=== PATIENT | male | born 1955 | race Caucasian/White ===

== ENCOUNTER 2016-12-19 11:14 | Observation (INO) ==
[2016-12-19] MEDS ORDERED: NITROGLYCERIN 2% OINT 1 INCH/GM PACK TOP STA (11:43)
[2016-12-19] MEDS ORDERED: MORPHINE 2 MG/1 ML SYRINGE IV STA (11:43)
[2016-12-19] MEDS ORDERED: ONDANSETRON 4 MG/2 ML VIAL IV STA (11:43)
[2016-12-19] MEDS ORDERED: ASPIRIN 325 MG TABLET PO STA (11:43)
[2016-12-19] MEDS ORDERED: ALUM/MAG/SIMETH/LIDO VISC 1:1 30 ML BOTTLE PO STA (11:43)
--- NOTE | 2016-12-19 11:53 | Emergency Department Note ---
Xavier Pool Meredith, am scribing for, and in the presence of, Obi Pires MD 11:31. Pranay Pool Charles R, MD, personally performed the services described in this documentation, ascribed by Essence aPrk in my presence, and it is both accurate and complete 153 . Arrival - Arrival Chief Complaint: Chest Pain Stated Complaint: chest pain ED Nursing Triage Note: Transfer from [facility] ER for further evaluation of chest pain onset this am. c/o right sided chest pain--descirbes as pressure. +nausea. Denies shortness of breath. Mode of Arrival: Stretcher Limitations: No Limitations Source: Patient, Old Records Reviewed, RN Notes Reviewed - History of Present Illness HPI Narrative: Pt is a 61 y/o white male transferred to the ED by EMS from [facility] for further evaluation of episode of diaphoresis and weakness, onset this morning. He confirms some right sided chest tightness but denies any shortness of breath. Pt states he has also noticed a "full/pressure" feeling in the left epigastric area which is worse with exertion. His last heart cath was in 2014 which was normal. Pt has a history of HTN and hiatal hernia. He has a family history of heart disease. Onset (ago): hour(s) Quality: other (tightness) Allergies/Adverse Reactions: Allergies Allergy/AdvReac Type Severity Reaction Status Date / Time Erythromycin Base AdvReac Unknown/Unable Verified 12/19/16 11:21 to obtain Penicillins AdvReac Seizure Verified 12/19/16 11:21 Review of System - Review of System 12 point system: reviewed and no additional remarkable complaints except as stated - Review of System Constitutional: Present: as per HPI, diaphoresis Respiratory: Present: as per HPI, other (denies SOB) Cardiovascular: Present: as per HPI, chest pain (right-sided chest tightness and left epigastric pressure) Medical,Surgical,& Family Hx - Medical History Cardio: History of: Hypertension Gastrointestinal: History of: GI Problems (hiatal hernia) - Surgical History Cardiac Surgeries: Sugical HX of: Cardiac Catheterization Abdominal Surgeries: Surgical HX of: Cholecystectomy - Family History Family History: Reports;: Family Heart Disease - Social History Smoking Status: Never smoker Frequency of Alcohol Use: Rarely Type of Drug Use: None Exam Vital Signs: Vital Signs Temperature 98.6 F 12/19/16 11:14 Pulse Rate 76 12/19/16 11:14 Respiratory Rate 18 12/19/16 11:14 Blood Pressure 141/87 12/19/16 11:14 O2 Sat by Pulse Oximetry 100 12/19/16 11:14 - General General appearance: alert, in no apparent distress, obese - Head Head exam: Present: atraumatic, normocephalic - Eye Eye exam: Present: normal appearance, PERRL, EOMI - ENT ENT exam: Present: mucous membranes moist, normal external ear exam - Neck Neck exam: Present: full ROM. Absent: trachea midline, tenderness, meningismus , lymphadenopathy, thyromegaly - Chest Chest inspection: Present: symmetric chest wall rise. Absent: tenderness, rash - Respiratory Respiratory exam: Present: normal lung sounds bilaterally. Absent: respiratory distress - Cardiovascular Cardiovascular exam: Present: regular rate, normal rhythm, normal heart sounds. Absent: murmur, rubs, gallop - Abdominal Exam Abdominal exam: Present: soft, normal bowel sounds. Absent: distention, tenderness - Extremities Exam Extremities exam: Present: full ROM, normal capillary refill. Absent: tenderness, pedal edema, calf tenderness - Back Exam Back exam: Present: full ROM. Absent: tenderness - Neurological Exam Neurological exam: Present: alert, oriented X3, CN II-XII intact. Absent: motor sensory deficit - Psychiatric Psychiatric exam: Present: normal affect, normal mood - Skin Skin exam: Present: warm, dry, intact, normal color Course - Consultations Consultation #1: Dr. Vinay Ken will admit patient Time: 11:52 Results - Labs Lab Results: I have reviewed the patients labs Labs: All results reviewed from previous facility Disposition Clinical Impression: Chest pain Case discussed with: patient, patient's family Disposition: Still a Patient Condition: Stable Time of Disposition: 11:53
--- NOTE | 2016-12-19 11:58 | EKG Report ---
Stationary ECG Study [facility] Test Date: 12/19/2016 11:19:05 AM Pat Name: XAVIER MEEK Department: Room: 267 Gender: M Telecom Assistant: : 1955 Requested by: Obi Wood Order Number: [id number] Reading MD: VEE ABRAMS Intervals [place] Rate: 74 P: 28 [place]: 173 QRS: -10 QRSD: 110 T: -7 QT: 370 QTc: 397 Interpretive Statements SINUS RHYTHM LOW QRS VOLTAGE IN PRECORDIAL LEADS POSSIBLE LEFT VENTRICULAR HYPERTROPHY NONSPECIFIC T-WAVE ABNORMALITY Electronically Signed On 12-20-16 13:34:32 GRAIN ELEVATOR MOTOR STARTER by VEE ABRAMS [email or web address]
[2016-12-19 11:59] LABS: Basophils # 0.1 10*3/uL (0.0-0.2); Basophils % 0.4 % (0.0-0.8); Eosinophils # 0.1 10*3/uL (0.0-0.87); Eosinophils % 0.4 % (0.00-10.9); Hematocrit 51.3 VOL% (42.0-52.0); Hemoglobin 17.7 GM/DL (14.0-18.0); Immature Granulocytes % 0.4 %; Immature Granulocytes Absolute 0.05 #; Lymphocytes # 1.7 10*3/uL (1.4-4.0); Lymphocytes % 12.1 % (21.2-54.2); Mean Corpuscular HGB Conc 34.5 GM/DL (32-36); Mean Corpuscular Hemoglobin 31 PG (27-34); Mean Corpuscular Volume 89.1 FL (87-102); Mean Platelet Volume 11.4 FL (9.6-12.0); Monocytes # 1.4 10*3/uL (0.11-0.8); Neutrophils # 10.5 10*3/uL (1.4-7.4); Neutrophils % 76.7 % (38.7-73.9); Platelet Count 225 10*3/uL (130-400); Red Blood Count 5.76 10*6/uL (3.8-5.5); Red Cell Distribution Width 12.8 % (9.3-17.3); White Blood Count 13.6 10*3/uL (4.5-13.71)
[2016-12-19] MEDS ORDERED: NITROGLYCERIN 2% OINT 1 INCH/GM PACK TOP ONE (12:02)
[2016-12-19] MEDS ORDERED: ONDANSETRON 4 MG/2 ML VIAL ONE (12:02)
[2016-12-19] MEDS ORDERED: MORPHINE 2 MG/1 ML SYRINGE ONE (12:02)
[2016-12-19] MEDS ORDERED: ALUM/MAG/SIMETH/LIDO VISC 1:1 30 ML BOTTLE PO ONE (12:02)
--- NOTE | 2016-12-19 12:04 | XRay Report ---
XR chest 1V portable Indication: Chest pain. Chest one view: Comparison 03/25/14. Heart size and mediastinal contour are normal. There is diffuse mild parabronchial thickening present. No focal infiltrates are shown. Pleural spaces are clear. Bones are intact. Impression: Mild airways disease such as bronchitis or viral syndrome. No focal pneumonia. PROCEDURE INTERPRETED AT [facility] DEPARTMENT OF RADIOLOGY Final Report Signed by: Mann Leiva M.D.
[2016-12-19 12:20] LABS: Albumin 4.2 G/DL (3.4-5.0); Bilirubin,Total 1.3 MG/DL (0.2-1.0); Calcium 9.4 MG/DL (8.5-10.1); Magnesium 2.3 MG/DL (1.8-2.4); Osmolality,Calculated 286.8 MOS/KG (273-304); Potassium 4.1 MMOL/L (3.5-5.1); Total Protein 7.2 G/DL (6.4-8.3)
--- NOTE | 2016-12-19 13:15 | Family Practice History&Phys ---
Assessment and Plan (1) Atypical chest pain Status: Acute Assessment and plan: 12/19/2016: Patient admitted to my services. Will consult cardiology. I do not think this represents cardiac pain but he certainly could be having an arrhythmia and will ask cardiology if they thinks he needs a link monitor. Current Visit: Yes History of Present Illness Chief complaint: Abdominal pain History of present illness: Mr. Reaves is a 61 year old male Patient 61-year-old white male states he got up this morning and has some fullness in his left upper abdomen and left lower chest that he describes is feeling like a balloon is in the area. He tell me he broke out in a sweat this morning but had no nausea, vomiting or discomfort in his neck shoulders or arms. Patient went to the ambulance base in [place] and they did a EKG on him and told him it was abnormal. He was taken to the emergency room in [place] and then transferred here for further evaluation. Patient does have a history of fairly recent left heart catheterization and thallium treadmill study as well. Both these were normal. He does have a family history of heart disease in his father which certainly provokes his anxiety which is considerable. He states he feels like he is back to normal now. Cardiac isoenzymes in the emergency room were normal. Emergency room physician did not feel comfortable sending him home and requested he be admitted for further evaluation. Home Medications Medication Instructions Recorded Confirmed Type Ascorbic Acid [Vitamin C] 1,000 mg PO BID 12/19/16 12/19/16 History Famotidine Tab [Pepcid Tab] 20 mg PO BID 12/19/16 12/19/16 History Metoprolol Succinate Xl [Toprol Xl] 25 mg PO DAILY 12/19/16 12/19/16 History Valsartan/Hctz 160-12.5 [Diovan 1 tablet PO DAILY 12/19/16 12/19/16 History Hct 160-12.5] Allergies Allergy/AdvReac Type Severity Reaction Status Date / Time Erythromycin Base AdvReac Unknown/Unable Verified 12/19/16 11:21 to obtain Penicillins AdvReac Seizure Verified 12/19/16 11:21 - Constitutional Constitutional: Present: weakness. Absent: chills, fatigue - EENT Eyes: Absent: blurry vision, loss of vision Ears: Absent: decreased hearing, ear pain Nose, mouth and throat: Absent: hoarseness, nasal congestion, sinus pressure, sore throat - Cardiovascular Cardiovascular: Present: chest pain at rest. Absent: claudication, dyspnea, dyspnea on exertion, orthopnea, palpitations, PND - Respiratory Respiratory: Absent: cough, dyspnea, wheezing - Gastrointestinal Gastrointestinal: Absent: abdominal pain, diarrhea, hematemesis, hematochezia, nausea, vomiting - Genitourinary Genitourinary: Absent: difficulty urinating, urinary frequency, urinary incontinence - Musculoskeletal Musculoskeletal: Absent: back pain - Neurological Neurological: Absent: confusion, convulsions, focal weakness, numbness, paresthesias - Psychiatric Psychiatric: Absent: confusion, depression - Endocrine Endocrine: Absent: fatigue, polydipsia, polyphagia - Hematologic/Lymphatic Hematologic/Lymphatic: Absent: easy bleeding, easy bruising Medical,Surgical,& Family Hx - Medical History Cardio: History of: Hypertension Gastrointestinal: History of: GI Problems (hiatal hernia) - Surgical History Cardiac Surgeries: Sugical HX of: Cardiac Catheterization Abdominal Surgeries: Surgical HX of: Cholecystectomy - Family History Family History: Reports;: Family Heart Disease - Social History Smoking Status: Never smoker Frequency of Alcohol Use: Rarely Type of Drug Use: None Exam - Constitutional Vitals: Period Temp Pulse Resp BP Sys/Gonzalez Pulse Ox Last 24 Hr 64-71 18-18 107-108/60-64 98-99 Exam: General: Objective patient is a well-developed white male in no acute distress. HEENT: Pupils equal and reactive to light. Patent nares and airway Neck: No meningismus, adenopathy, thyromegaly. There are no auscultated carotid bruits. Cardiovascular: Regular rhythm. No murmurs or gallops Chest: Clear to auscultation without rales rhonchi wheezes. Abdomen: Soft nontender to palpation No masses, rebound, guarding or tenderness. Neuro: Cranial nerves intact and DTRs and strength symmetric in all extremities. Dermatologic: No evidence of abnormal lesions or masses. Musculoskeletal: There is no joint swelling or tenderness or deformity. Extremities: There is no calf swelling or tenderness. Results - Labs CBC & BMP: 12/19/16 11:30 12/19/16 11:30 Lab Results: I have reviewed the past 24 hour labs
[2016-12-19] MEDS ORDERED: ACETAMINOPHEN 325 MG TABLET PO PRN (13:26)
[2016-12-19] MEDS ORDERED: MORPHINE 2 MG/1 ML SYRINGE IV PRN (13:26)
[2016-12-19] MEDS ORDERED: ONDANSETRON 4 MG/2 ML VIAL IV PRN (13:26)
[2016-12-19] MEDS: SODIUM CHLORIDE 0.9% 1,000 ML IV SCH (13:45)
[2016-12-19] MEDS: NITROGLYCERIN 2% OINT 1 INCH/GM PACK TOP SCH ×2 (13:59→17:48)
--- NOTE | 2016-12-19 15:05 | EKG Report ---
Stationary ECG Study [facility] Test Date: 12/19/2016 3:03:57 PM Pat Name: XAVIER MEEK Department: Room: 267 Gender: M Dish Room Worker: : 1955 Requested by: Obi Wood Order Number: [id number] Reading MD: VEE ABRAMS Intervals [place] Rate: 57 P: 49 ID: [id number] QRS: 12 QRSD: 99 T: -5 QT: 406 QTc: 400 Interpretive Statements SINUS RHYTHM POSSIBLE LEFT VENTRICULAR HYPERTROPHY Electronically Signed On 12-20-16 13:41:39 REFINERY OPERATOR POLYMERIZATION PLANT by VEE ABRAMS [id number]
[2016-12-19] MEDS: ENOXAPARIN 120 MG/0.8 ML SYRINGE SUBCUT SCH (16:31)
[2016-12-19] MEDS: DOCUSATE SODIUM 100 MG CAPSULE PO SCH (21:46)
--- NOTE | 2016-12-19 22:51 | Cardiology Consult Note ---
I, Keira Fontaine, AMBREEN, am scribing for, and in the presence of, Barney Dumont MD 22:50. Assessment and Plan - Time spent with patient Time spent with patient: Greater than 30 minutes (1) Atypical chest pain Status: Acute Assessment and plan: He reports recent negative cardiac workup including negative heart cath within 1.5 years and negative stress testing in January 2016. We will try to obtain these records. Last echocardiogram 10/03/15 revealed ejection fraction of 55%. Differential diagnosis of his left upper quadrant pain with activity would include splenic problem, bowel problem, colon problems, stomach problems, or some other abnormality in that area. I believe there is a low chance this is due to coronary disease, especially given his negative heart catheterization of 1.5 years ago and negative treadmill about 8 months ago. To me, it sounds like splenic flexure syndrome which would be gas pain in the splenic flexure colon area. I suppose it could be due to an arrhythmia, but he is not feeling associated rapid heart rate or irregular heart rate with it. At this point, I believe the insurance would not approve/pay for a link monitor, but you could try to get it precertified, if you strongly feel he needs to be done. They would want us to do a 24-hour Holter then a 30 day Holter prior to that more expensive device. Plan/ recommendation : Let us consult Dr. herrera and see if he thinks this may be GI related. He can see him tomorrow. If not, we could set him up for a Holter, outpatient. If his enzymes are positive will do a cath. I discussed with him about doing a heart cath, if he is worried about the heart. He is not. He is comfortable given the negative workup of not doing it. However if the enzymes are positive will do a cath. Regarding his near syncopal episode associated with nausea, it sounds like it was a vasovagal event. Although he denies it related to the balloon pain in his left upper quadrant, I cannot help but think that there would be some abdominal abnormality contributing to this near syncopal episode, causing his nausea.. Lastly, he has symptoms and findings on exam to suggest he has obstructive sleep apnea. I discussed with him about evaluation and treatment. He is willing to undergo evaluation and treatment if we believe it would be helpful to him. I will consult Dr. Perry Thank you for allowing me to participate in this patient's care Current Visit: Yes (2) Pre-syncope Status: Acute Current Visit: Yes (3) Abdominal pain Status: Acute Current Visit: Yes (4) Hypertension Status: Acute Assessment and plan: Currently well controlled. Current Visit: Yes (5) Hiatal hernia with GERD Status: Acute Assessment and plan: Past history of esophageal stricture with dilation. Current Visit: Yes (6) History of gout Status: Acute Current Visit: Yes (7) TANI (obstructive sleep apnea) Status: Acute Current Visit: Yes (8) Overweight Status: Acute Current Visit: Yes (9) Vasovagal near syncope Status: Acute Current Visit: Yes (10) Statin intolerance Status: Acute Current Visit: Yes History of Present Illness - Data of Consult Patient: known to practice within the last 3 years Consult date: 12/19/16 Requesting Physician: Vinay Ken - Consult Narrative Reason for consult: atypical chest pain History of present illness: Mr. Reaves is a 61 year old male who has seen cardiologists in [place] and [place]. He has seen Dr. Winston in clinic previously but has also had cardiac workup with Dr. Bhakta at [facility]. He has a history of hypertension, hiatal hernia, gastroesophageal reflux disease, gout. He has risk factors significant for: family history of heart disease, obesity, hypertension. He reports he has previously underwent left heart catheterization with Dr. Bhakta in [place] about a year and a half ago and reports being told he had a "20% blockage" in one place but otherwise had a negative cath. He underwent nuclear stress testing at [facility] in January of 2016 and he reports this was also negative. We will try to obtain these records. He presents to the hospital today with complaints of abdominal pain and presyncope. He reports having a left upper abdominal "fullness" that has been going on for the last 2 weeks. He reports this feels like a "bloating" feeling. 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 He tells me this can sometimes last a while unless he sits down in a reclining position to rest. This is not associated with chest pain, arm pain, jaw pain, palpitations, shortness of breath, dizziness, lightheadedness, diaphoresis, or syncope. He also reports an episode of presyncope this morning. He reports he went to let his dogs out to go to the bathroom this morning and when he came back inside , he felt nauseated, weak, and diaphoretic. He tells me he got the dogs back inside and went to take a shower at the usual temperature he usually uses and again felt nauseated and weak in the knees. He turned the shower to a cooler temperature and sat down because he felt like he might pass out. He reports feeling like a "cold chill" came over him. He had no associated symptoms of chest pain, palpitations, shortness of breath, dizziness, or syncope. He checked his blood pressure after getting out of the shower and it was 136/86. His first two sets of troponins have been negative. BNP was 14. Creatinine is 1.2. Blood pressure is well controlled. He is maintaining a sinus rhythm with rates in the 60's-70's. He states he has tried Livalo for mild elevated cholesterol. After while, he had flank pain. He stopped it and the flank pain went away. He has much bowel gas. The patient of Dr. Qamar Winston CC: Vinay Ken MD - Home Medications and Allergies Home Medications: Home Medications Medication Instructions Recorded Confirmed Type Ascorbic Acid [Vitamin C] 1,000 mg PO BID 12/19/16 12/19/16 History Famotidine Tab [Pepcid Tab] 20 mg PO BID 12/19/16 12/19/16 History Metoprolol Succinate Xl [Toprol Xl] 25 mg PO DAILY 12/19/16 12/19/16 History Valsartan/Hctz 160-12.5 [Diovan 1 tablet PO DAILY 12/19/16 12/19/16 History Hct 160-12.5] Allergies/Adverse Reactions: Allergies Allergy/AdvReac Type Severity Reaction Status Date / Time Erythromycin Base AdvReac Unknown/Unable Verified 12/19/16 11:21 to obtain Penicillins AdvReac Seizure Verified 12/19/16 11:21 - Constitutional Constitutional: Present: weakness. Absent: anorexia, chills, daytime sleepiness , excessive sweating, fatigue, fever(s), frequent falls, headache(s), increased appetite, lethargy, malaise, night sweats, stops breathing during sleep, weight gain, weight loss - EENT Eyes: Absent: blurry vision, diplopia, loss of vision Ears: Absent: decreased hearing, ear discharge, ear pain Nose, mouth and throat: Absent: dysphagia, epistaxis, headache(s), hoarseness, lip swelling, nasal congestion, neck mass, neck pain, sinus pressure, sore throat, throat swelling, tongue swelling, vertigo - Cardiovascular Cardiovascular: Present: as per HPI, diaphoresis, lightheadedness. Absent: chest pain at rest, chest pain with activity, dyspnea, dyspnea on exertion, edema, radiating jaw, neck or arm pain, orthopnea, palpitations, PND - Respiratory Respiratory: Present: as per HPI. Absent: cough, dyspnea, hemoptysis, dyspnea on exertion, wheezing, snoring, pain on inspiration - Gastrointestinal Gastrointestinal: Present: as per HPI, bloating, nausea. Absent: abdominal pain , change in bowel habits, constipation, cramping, diarrhea, dyspepsia, dysphagia , early satiety, hematochezia, loose stools, melena, vomiting - Genitourinary Genitourinary: Absent: difficulty urinating, dysuria, flank pain, hematuria, nocturia, urinary frequency, urinary incontinence - Musculoskeletal Musculoskeletal: Absent: arthralgias, back pain, joint swelling, limited range of motion, muscle cramps, muscle weakness, myalgias - Neurological Neurological: Present: other (presyncope). Absent: abnormal gait, abnormal speech, behavioral changes, confusion, convulsions, disequilibrium, dizziness, focal weakness, frequent falls, headache(s), memory loss, numbness, paresthesias , radicular pain, syncope, tremor(s) - Psychiatric Psychiatric: Present: anxiety. Absent: auditory hallucinations, confusion, depression, memory loss, panic attacks - Endocrine Endocrine: Absent: cold intolerance, fatigue, heat intolerance, polydipsia, polyphagia - Hematologic/Lymphatic Hematologic/Lymphatic: Absent: easy bleeding, easy bruising, lymphadenopathy Medical,Surgical,& Family Hx - Medical History Cardio: History of: Hypertension Gastrointestinal: History of: GI Problems (hiatal hernia) - Surgical History Cardiac Surgeries: Sugical HX of: Cardiac Catheterization Abdominal Surgeries: Surgical HX of: Cholecystectomy, Colonoscopy, EGD - Family History Family History: Reports;: Family Heart Disease - Social History Smoking Status: Never smoker Frequency of Alcohol Use: Rarely Type of Drug Use: None Physical Examination Vital Signs Temp Pulse Resp BP Pulse Ox 98.6 F 76 18 141/87 100 01/19/17 11:14 12/19/16 11:14 12/19/16 11:14 12/19/16 11:14 12/19/16 11:14 General: Present: Appears Well, No Apparent Distress HEENT: Present: Normocephaly, Mucus Membranes Moist Neck: Present: Supple Neck, Midline Trachea, No Masses, No Bruit, No Lymphadenopathy, No Thyromegaly Cardiac: Present: Reg Rate and Rhythm, No Murmur Lungs: Present: Normal Exam, Normal Breath Sounds, No Wheeze, Rales, Rhonchi Neuro: Present: Grossly Intact. Absent: Resting Tremor, Essential Tremor Abdomen: Present: Soft, Active Bowel Sounds, No Masses, No Pulsations/Bruits, Tender (to palpation of left upper quadrant beneath last rib. ), No Hepatosplenomegaly Skin: Present: Clear. Absent: Rash Musculoskeletal: Present: No Fluid Collection, No Pain, Normal Range of Motion Extremities: Present: Normal Gait, No Clubbing, No Cyanosis, No Edema, Normal Upper Extr. Pulses, Normal Lower Extr. Pulses Result/EKG - Labs CBC & BMP: 12/19/16 11:30 12/19/16 11:30 Lab Results: I have reviewed the past 24 hour labs Labs: Laboratory Results - last 24 hr 12/19/16 15:10 Troponin I < 0.015 - EKG EKG results: interpreted by me, sinus rhythm I, Barney Dumont MD, personally performed the services described in this documentation, ascribed by Keira Fontaine RN in my presence, and it is both accurate and complete .
[2016-12-20] MEDS: NITROGLYCERIN 2% OINT 1 INCH/GM PACK TOP SCH ×2 (00:46→05:52)
[2016-12-20] MEDS: SODIUM CHLORIDE 0.9% 1,000 ML IV SCH (03:53)
[2016-12-20 04:27] LABS: Basophils # 0.1 10*3/uL (0.0-0.2); Basophils % 0.5 % (0.0-0.8); Eosinophils # 0.1 10*3/uL (0.0-0.87); Eosinophils % 1.2 % (0.00-10.9); Hematocrit 43.6 VOL% (42.0-52.0); Hemoglobin 14.7 GM/DL (14.0-18.0); Immature Granulocytes % 0.5 %; Immature Granulocytes Absolute 0.05 #; Lymphocytes # 2.2 10*3/uL (1.4-4.0); Lymphocytes % 21.5 % (21.2-54.2); Mean Corpuscular HGB Conc 33.7 GM/DL (32-36); Mean Corpuscular Hemoglobin 30 PG (27-34); Mean Corpuscular Volume 90.1 FL (87-102); Monocytes # 1.2 10*3/uL (0.11-0.8); Monocytes % 11.8 % (1.7-12.7); Neutrophils # 6.7 10*3/uL (1.4-7.4); Neutrophils % 64.5 % (38.7-73.9); Platelet Count 180 10*3/uL (130-400); Red Blood Count 4.84 10*6/uL (3.8-5.5); Red Cell Distribution Width 12.7 % (9.3-17.3); White Blood Count 10.4 10*3/uL (4.5-13.71)
[2016-12-20 04:55] LABS: Albumin 3.2 G/DL (3.4-5.0); Bilirubin,Total 0.9 MG/DL (0.2-1.0); Calcium 8.4 MG/DL (8.5-10.1); Magnesium 2.2 MG/DL (1.8-2.4); Osmolality,Calculated 287.8 MOS/KG (273-304); Potassium 3.9 MMOL/L (3.5-5.1); Risk Ratio 3.19; Total Protein 5.5 G/DL (6.4-8.3); Troponin I Only < 0.015 NG/ML (0.00-0.045); VLDL CHOLESTEROL 20.8 MG/DL
[2016-12-20] MEDS: ENOXAPARIN 120 MG/0.8 ML SYRINGE SUBCUT SCH (05:52)
--- NOTE | 2016-12-20 07:17 | XRay Report ---
XR chest 2V Indication: Shortness of breath. Chest 2 views: Comparison yesterday. Normal heart size and mediastinal contour. No infiltrates. Pleural spaces are clear. Bony elements are maintained. Impression: No acute cardiopulmonary disease. PROCEDURE INTERPRETED AT [facility] DEPARTMENT OF RADIOLOGY Final Report Signed by: Mann Leiva M.D.
--- NOTE | 2016-12-20 07:31 | EKG Report ---
Stationary ECG Study [facility] Test Date: 12/20/2016 7:30:46 AM Pat Name: XAVIER MEEK Department: Room: 267 Gender: M Zoning Assistant: : 1955 Requested by: Barney Dumont Order Number: [id number] Reading MD: VEE ABRAMS Intervals [place] Rate: 57 P: 49 [place]: 178 QRS: -3 QRSD: 111 T: -3 QT: 405 QTc: 399 Interpretive Statements SINUS RHYTHM NON-SPECIFIC ST-T INFERIOR ABNORMALITIES Electronically Signed On 12-20-16 14:09:21 DRAFTING TECHNICIAN by VEE ABRAMS [id number]
[2016-12-20 07:47] VITALS: BP 118/61
--- NOTE | 2016-12-20 08:03 | Discharge Summary ---
Hospital Course - Hospital Course Hospital Course: Patient is 61-year-old white male who was seen in the emergency room with chest pain. The emergency physician felt that admission was warranted in place was admitted to telemetry bed. Patient's cardiac enzymes have remained negative. EKG is negative as well. Patient's had a recent cardiac workup that was unrevealing. He is anxious about his heart as his father had heart disease a fairly young age. Patient was complaining of bloated feeling in his left upper quadrant. Patient's had a history of EGD and cystoscope in January 2016. He had negative findings at that time. Patient is feeling well and wants to go home this morning. I told him that we could certainly get him home to see GI and also Dr. Perry for sleep study as an outpatient. He was agreeable to this. Diagnosis - Discharge Diagnosis (1) Atypical chest pain Status: Acute Discharge Plan - Discharge Data Disposition: Disch To Home/Self Care Condition at Discharge: Stable Discharge Diet: advance to your usual diet, heart healthy Activity: resume usual activities as tolerated Hygiene: no restrictions Weight Bearing at Discharge: full weight bearing Driving: no restrictions Contact your physician if you experience:: fever over 101 - Discharge Medications New Acetaminophen Tab [Tylenol Tab] 650 mg PO Q6H PRN #0 tablet PRN Reason: Fever > 100.4 Or Headache Aspirin EC Tab 81 mg PO DAILY tablet Omeprazole [Prilosec] 20 mg PO BID #60 capsule Continue Metoprolol Succinate Xl [Toprol Xl] 25 mg PO DAILY Ascorbic Acid [Vitamin C] 1,000 mg PO BID Valsartan/Hctz 160-12.5 [Diovan Hct 160-12.5] 1 tablet PO DAILY Discontinued Famotidine Tab [Pepcid Tab] 20 mg PO BID - Follow Up or Referral Follow Up: Vinay Ken MD [Primary Care Provider] - 1 Month Kingston Evans MD [Physician] - 1 Month Dasha Perry MD [Physician] - 2 Weeks - Forms/Instructions Exam - Constitutional Vitals: Period Temp Pulse Resp BP Sys/Gonzalez Pulse Ox Last 24 Hr 97.2 F-98.6 F 58-71 16-20 107-135/55-80 91-99 Exam: The well-developed gentleman is no acute distress this morning. States he is feeling better. He wants to go home and walks the inauguration. He denies any discomfort. Cardiovascular: Heart rates regular with no murmurs or gallops. Respiratory: The lungs clear to auscultation bilaterally. Abdomen: Abdomen is completely soft and nontender to palpation. Discharge Results Procedures and tests throughout hospitalization: Pending Orders 12/20/16 10:00 Troponin,CKMB & Ck Total Q6H No abnormality of cardiac enzymes were noted Labs on day of discharge: Labs from last 24 hours 12/20/16 12/20/16 12/20/16 04:11 04:11 04:11 WBC 10.4 RBC 4.84 Hgb 14.7 D Hct 43.6 MCV 90.1 MCH 30 MCHC 33.7 RDW 12.7 Plt Count 180 MPV 11.0 Neut % (Auto) 64.5 Lymph % (Auto) 21.5 [place] % (Auto) 11.8 Eos % (Auto) 1.2 Baso % (Auto) 0.5 Neut # (Auto) 6.7 Lymph # (Auto) 2.2 [place] # (Auto) 1.2 H Eos # (Auto) 0.1 Baso # (Auto) 0.1 Immature Gran % 0.5 Nucleated RBC % 0.0 Immature Gran # 0.05 Nucleated RBCs # 0.00 Sodium 144 Potassium 3.9 Chloride 108 H Carbon Dioxide 25 Anion Gap 14.9 BUN 17 Creatinine 1.30 GFR Calculation 82 BUN/Creatinine Ratio 13.00 Glucose 107 H Calculated Osmolality 287.8 Calcium 8.4 L Magnesium 2.2 Total Bilirubin 0.90 AST 15 ALT 24 Alkaline Phosphatase 54 Total Creatine Kinase CK-MB (CK-2) Troponin I B-Natriuretic Peptide 19 Total Protein 5.5 L Albumin 3.2 L Globulin 2.3 Albumin/Globulin Ratio 1.3 Triglycerides 104 Cholesterol 166 LDL Cholesterol 95.0 VLDL Cholesterol 20.8 HDL Cholesterol 52 Heart Disease Risk Ratio 3.19 12/20/16 12/19/16 12/19/16 04:11 18:16 15:10 WBC RBC Hgb Hct MCV MCH MCHC RDW Plt Count MPV Neut % (Auto) Lymph % (Auto) [place] % (Auto) Eos % (Auto) Baso % (Auto) Neut # (Auto) Lymph # (Auto) [place] # (Auto) Eos # (Auto) Baso # (Auto) Immature Gran % Nucleated RBC % Immature Gran # Nucleated RBCs # Sodium Potassium Chloride Carbon Dioxide Anion Gap BUN Creatinine GFR Calculation BUN/Creatinine Ratio Glucose Calculated Osmolality Calcium Magnesium Total Bilirubin AST ALT Alkaline Phosphatase Total Creatine Kinase 59 CK-MB (CK-2) < 1.0 Troponin I < 0.015 < 0.015 < 0.015 B-Natriuretic Peptide Total Protein Albumin Globulin Albumin/Globulin Ratio Triglycerides Cholesterol LDL Cholesterol VLDL Cholesterol HDL Cholesterol Heart Disease Risk Ratio DS: Provider Date of admission: 12/19/16 11:55 Primary care physician: Vinay Ken MD Attending physician on admission: Vinay Ken MD Consults: 12/19/16 13:26 Consult to Case Mgmt/Social Srvs [CONS] Routine Reason for Case Mgmt/Social Srvs: Discharge Planning Consult to Physician [CONS] Routine Comment: chest pain Consulting Provider: Cardiology - [facility] When should Consulting Provider be notified: Now 12/19/16 13:43 Consult to Pharmacy [CONS] Routine Reason for Pharmacy Consult: Adjust Meds Renal Funct 12/19/16 22:33 Consult to Physician [CONS] Routine Comment: Consulting Provider: Kingston Evans Consulting Provider Notified: No When should Consulting Provider be notified: In am Consult Notification Comment: Patient with multiple workup for cardiac status which is so far been negative. He presents with left upper abdominal fullness, balloon like feeling which comes on with activity. Differential diagnosis would include splenic flexure syndrome[presumed gas in his colon causing pain]. Please evaluate and see if you think this may be GI related. Thank you. He has seen you in the past 12/19/16 22:36 Consult to Physician [CONS] Routine Comment: Consulting Provider: Dasha Perry Consulting Provider Notified: No When should Consulting Provider be notified: In am Consult Notification Comment: Patient with atypical left upper quadrant pain and prior negative cardiac workup. However, what relates to you is that he does have some snoring, possible apnea, and excessive daytime somnolence. He is overweight and has a large neck and a small mouth. Please evaluate for the possibility of obstructive sleep apnea and DX an Rx. Thank you Discharging clinician: Vinay Ken MD Expected date of discharge: 12/20/16
[2016-12-20] MEDS: DOCUSATE SODIUM 100 MG CAPSULE PO SCH (08:54)
[2016-12-20] MEDS ORDERED: PANTOPRAZOLE 40 MG VIAL IV SCH (09:00)
[2016-12-20] MEDS ORDERED: SIMETHICONE CHEW 80 MG TABLET PO SCH (09:00)
[2016-12-20] MEDS ORDERED: ASPIRIN EC 81 MG TABLET PO SCH (09:00)
--- NOTE | 2016-12-20 10:10 | Cardiology Progress Note ---
Assessment and Plan (1) Atypical chest pain Status: Acute Assessment and plan: He reports recent negative cardiac workup including negative heart cath within 1.5 years and negative stress testing in January 2016. We will try to obtain these records. Last echocardiogram 10/03/15 revealed ejection fraction of 55%. Differential diagnosis of his left upper quadrant pain with activity would include splenic problem, bowel problem, colon problems, stomach problems, or some other abnormality in that area. I believe there is a low chance this is due to coronary disease, especially given his negative heart catheterization of 1.5 years ago and negative treadmill about 8 months ago. To me, it sounds like splenic flexure syndrome which would be gas pain in the splenic flexure colon area. I suppose it could be due to an arrhythmia, but he is not feeling associated rapid heart rate or irregular heart rate with it. At this point, I believe the insurance would not approve/pay for a link monitor, but you could try to get it precertified, if you strongly feel he needs to be done. They would want us to do a 24-hour Holter then a 30 day Holter prior to that more expensive device. Plan/ recommendation : Let us consult Dr. herrera and see if he thinks this may be GI related. He can see him tomorrow. If not, we could set him up for a Holter, outpatient. If his enzymes are positive will do a cath. I discussed with him about doing a heart cath, if he is worried about the heart. He is not. He is comfortable given the negative workup of not doing it. However if the enzymes are positive will do a cath. Regarding his near syncopal episode associated with nausea, it sounds like it was a vasovagal event. Although he denies it related to the balloon pain in his left upper quadrant, I cannot help but think that there would be some abdominal abnormality contributing to this near syncopal episode, causing his nausea.. Lastly, he has symptoms and findings on exam to suggest he has obstructive sleep apnea. I discussed with him about evaluation and treatment. He is willing to undergo evaluation and treatment if we believe it would be helpful to him. I will consult Dr. Perry Thank you for allowing me to participate in this patient's care 12/20/16-plan/recommendation: No more left upper abdominal discomfort. Thus, we could not monitor his rhythm and blood pressure and glucose during the event. He is to use Gas-X or Mylicon one tablet 4 times a day as needed after meals. It may help prevent these symptoms. He will follow-up with Dr. Winston in about a month as is scheduled. Meanwhile he will be seeing Dr. evans outpatient to evaluate for GI cause of the symptoms. He has been set up for a PSG for sleep apnea. That is very favorable. Treatment of sleep apnea may also help lessen his gas and some of the symptoms. He needs evaluation / treatment of his TANI. Okay with me for discharge. Thank you for allowing to participate in this patient's care (2) Pre-syncope Status: Acute (3) Abdominal pain Status: Acute (4) Hypertension Status: Acute Assessment and plan: Currently well controlled. (5) Hiatal hernia with GERD Status: Acute Assessment and plan: Past history of esophageal stricture with dilation. (6) History of gout Status: Acute (7) TANI (obstructive sleep apnea) Status: Acute (8) Overweight Status: Acute (9) Vasovagal near syncope Status: Acute (10) Statin intolerance Status: Acute Cardiology - PN: Subj Interval history: no more cp/lft abdomenal pain Exam (Progress Note) - Constitutional Vitals: Period Temp Pulse Resp BP Sys/Gonzalez Pulse Ox Last 24 Hr 97.2 F-98.6 F 58-71 16-20 107-135/55-80 91-99 Exam: No JVD or neck bruit HEENT: PERRLA Cardiac: Regular rhythm and rate with normal s1/S2. Lungs: Clear to auscultation Abdomen: Without organomegaly ors Spine/extremities: No clubbing, cyanosis, or edema. Neuro: nonfocal Psych: no vegetative signs of depression or anxiety lower extremity pulses are 3-4 + Result/EKG - Labs CBC & BMP: 12/20/16 04:11 12/20/16 04:11 Lab Results: I have reviewed the past 24 hour labs Labs: Laboratory Results - last 24 hr 12/19/16 12/19/16 12/20/16 15:10 18:16 04:11 WBC RBC Hgb Hct MCV MCH MCHC RDW Plt Count MPV Neut % (Auto) Lymph % (Auto) [place] % (Auto) Eos % (Auto) Baso % (Auto) Neut # (Auto) Lymph # (Auto) [place] # (Auto) Eos # (Auto) Baso # (Auto) Immature Gran % Nucleated RBC % Immature Gran # Nucleated RBCs # Sodium Potassium Chloride Carbon Dioxide Anion Gap BUN Creatinine GFR Calculation BUN/Creatinine Ratio Glucose Calculated Osmolality Calcium Magnesium Total Bilirubin AST ALT Alkaline Phosphatase Total Creatine Kinase 59 CK-MB (CK-2) < 1.0 Troponin I < 0.015 < 0.015 < 0.015 B-Natriuretic Peptide Total Protein Albumin Globulin Albumin/Globulin Ratio Triglycerides Cholesterol LDL Cholesterol VLDL Cholesterol HDL Cholesterol Heart Disease Risk Ratio 12/20/16 12/20/16 12/20/16 04:11 04:11 04:11 WBC 10.4 RBC 4.84 Hgb 14.7 D Hct 43.6 MCV 90.1 MCH 30 MCHC 33.7 RDW 12.7 Plt Count 180 MPV 11.0 Neut % (Auto) 64.5 Lymph % (Auto) 21.5 [place] % (Auto) 11.8 Eos % (Auto) 1.2 Baso % (Auto) 0.5 Neut # (Auto) 6.7 Lymph # (Auto) 2.2 [place]ess # (Auto) 1.2 H Eos # (Auto) 0.1 Baso # (Auto) 0.1 Immature Gran % 0.5 Nucleated RBC % 0.0 Immature Gran # 0.05 Nucleated RBCs # 0.00 Sodium 144 Potassium 3.9 Chloride 108 H Carbon Dioxide 25 Anion Gap 14.9 BUN 17 Creatinine 1.30 GFR Calculation 82 BUN/Creatinine Ratio 13.00 Glucose 107 H Calculated Osmolality 287.8 Calcium 8.4 L Magnesium 2.2 Total Bilirubin 0.90 AST 15 ALT 24 Alkaline Phosphatase 54 Total Creatine Kinase CK-MB (CK-2) Troponin I B-Natriuretic Peptide 19 Total Protein 5.5 L Albumin 3.2 L Globulin 2.3 Albumin/Globulin Ratio 1.3 Triglycerides 104 Cholesterol 166 LDL Cholesterol 95.0 VLDL Cholesterol 20.8 HDL Cholesterol 52 Heart Disease Risk Ratio 3.19 - EKG EKG results: interpreted by me Specialty Discharge - Follow Up or Referrals Follow up with: Vinay Ken MD [Primary Care Provider] - 01/27/17 11:00 am Kingston Evans MD [Physician] - 01/21/17 3:30 pm Dasha Perry MD [Physician] - 2 Weeks Alexi Winston MD [Physician] - 01/17/17 8:20 am
[2016-12-20 10:30] LABS: Troponin I Only < 0.015 NG/ML (0.00-0.045)
== END 2016-12-20 11:34 | disposition home or self-care (01) ==
LOC: EDUNIT# → EDBD → N.ED 11:14 → N.EDINP 11:55 → INTOOBSV 11:55 → N.TELES 12:34
PROVIDERS: ADMIT Family Medicine; ATTEND Family Medicine